=== PATIENT | female | born 1940 | race Caucasian/White ===

== ENCOUNTER 2022-05-11 16:12 | Inpatient (IN) | payer MEDICARE, OTHER ==
[~2022-05-11] VITALS: Ht 160 cm; Wt 66.7 kg
--- NOTE | 2022-05-11 16:15 | NUR ---
RECEIVED PT 82 YRS FEMALE CAME FROM HOME BY HANSA S/P TRIP AND FALL PAIN ON LT HIP DIFFORMITY UNABLE TO KEEPT STRATE
[2022-05-11] MEDS ORDERED: CARV12.5 PO (16:44)
[2022-05-11] MEDS ORDERED: ACETAMINOPHEN ES 500 MG TABLET ONE (16:52)
[2022-05-11] MEDS ORDERED: ACETAMINOPHEN ES 500 MG TABLET PO ONE (17:00)
--- NOTE | 2022-05-11 17:25 | NUR ---
INSERTED ANGO CATHETER G 18 ON RT AC BLOOD DROW AND SENT TO LAB
--- NOTE | 2022-05-11 18:10 | NUR ---
INSERTED FC FR 16 WITH NO DIFFECULTY UA SENT TO LAB
--- NOTE | 2022-05-11 18:14 | NUR ---
DR. ARMSTRONG SPEAKING WITH DR. COOLEY.
--- NOTE | 2022-05-11 18:35 | NUR ---
COVID SWAB SENT TO LAB
[2022-05-11 18:49] LABS: CALCIUM, SERUM 9.1 mg/dL (8.5-10.1); CREATININE 0.7 mg/dL (0.6-1.3); POTASSIUM 3.6 mmol/L (3.5-5.1)
[2022-05-11 18:55] LABS: ALBUMIN 3.3 g/dL (3.4-5.0); BILIRUBIN,DIRECT 0.1 mg/dL (0.0-0.2); BILIRUBIN,TOTAL 0.3 mg/dL (0.2-1.0); TOTAL PROTEIN, SERUM 6.8 g/dL (6.4-8.2)
--- NOTE | 2022-05-11 19:25 | NUR ---
HAND OFF SIMBA RAY
[2022-05-11 19:53] LABS: BASOPHILS % (AUTO) 0.2 % (0.0-2.0); EOSINOPHILS % (AUTO) 0.6 % (0.0-6.0); HEMATOCRIT 39 % (33-45); HEMOGLOBIN 13.1 g/dL (11.5-14.8); LYMPHOCYTES # (AUTO) 1.5 K/uL (0.8-4.8); LYMPHOCYTES % (AUTO) 11.9 % (20.0-44.0); MEAN CORPUSCULAR HGB CONC 33 g/dl (31.0-36.0); MEAN CORPUSCULAR VOLUME 94 fL (82-100); MONOCYTES # (AUTO) 0.5 K/uL (0.1-1.30); MONOCYTES % (AUTO) 3.7 % (2.0-12.0); NEUTROPHILS # (AUTO) 10.4 K/uL (1.8-8.9); NEUTROPHILS % (AUTO) 83.6 % (43.0-81.0); PLATELET COUNT (AUTO) 308 K/uL (150-450); WHITE BLOOD COUNT (AUTO) 12.5 K/uL (4.3-11.0)
[2022-05-11] MEDS ORDERED: KETOROLAC TROMETHAMINE INJ 30 MG/ML VIAL ONE (20:16)
[2022-05-11] MEDS ORDERED: KETOROLAC TROMETHAMINE INJ 30 MG/ML VIAL IV ONE (20:30)
[2022-05-11] MEDS ORDERED: ENOXAPARIN SODIUM 40 MG/0.4 ML DISP.SYRIN SQ SCH (21:00)
[2022-05-11] MEDS ORDERED: ACETAMINOPHEN 325 MG TABLET PO PRN (21:00)
[2022-05-11] MEDS ORDERED: ONDANSETRON HCL/PF 4 MG/2 ML VIAL IVP PRN (21:00)
[2022-05-11] MEDS ORDERED: HYDROCODONE/APAP 5/325MG TABLET PO PRN (21:00)
--- NOTE | 2022-05-11 22:03 | NUR ---
report given to Deonte RAY
--- NOTE | 2022-05-11 22:13 | NUR ---
PATIENT TRANSFERRED TO [facility] VIA BLS PROTOCOL, VS WNL.
--- NOTE | 2022-05-11 22:30 | NUR ---
ADMISSION NOTES PATIENT BROUGHT IN UNIT AT AROUND 2215, ACCOMPANIED BY 2 ER PERSONNEL VIA [employer]. PATIENT IS A/OX4. NO S/S OF APPARENT DISTRESS ON ROOM AIR. PAIN OF 5/10 ON HER LEFT HIP. PATIENT HAS RT. AC #18G IV ACCESS, INTACT AND PATENT. NEW ID BAND ON PATIENT. BELONGINGS CHECKED AND SIGNED FOR. PATIENT HAS HER YELLOW WEDDING BAND ON HER. PATIENT WISHES TO BE FULL CODE BUT DENIES HAVING ANY ADVANCED DIRECTIVES. REFUSED TO ACQUIRE FOR NOW, PER PATIENT SHE IS ORIGINALLY FROM [place] AND WOULD JUST BE HERE FOR 2 MORE MONTHS. PATIENT ORIENTED IN THE UNIT AND THE USE OF CALL LIGHT. ETIENNE CATHETER DRAINING VIA GRAVITY WITH CLEAR, YELLOW URINE. PATIENT DENIES SMOKING NOR DRINKING ALCOHOL. PATIENT WISHED NOT TO CALL DAUGHTER AT THIS TIME, AND TO QUOTE "I WANT HER TO GET SLEEP. SHE KNOWS I AM HERE AND WILL COME TOMORROW. SHE DOESN'T REALLY HANDLE STRESS WELL". PER PATIENT WISHES, I WILL CALL DAUGHTER IN THE MORNING. ALL NEEDS ATTENDED FOR NOW. V/S TAKEN AND RECORDED. SAFETY IN PLACE. PATIENT MADE AWARE OF NPO STATUS FOR PROCEDURE TOMORROW. WILL CONTINUE WITH PLAN OF CARE FOR PATIENT.
--- NOTE | 2022-05-11 22:57 | NUR ---
noc rn note patient c/o 5/10 pain on her hips after positioning. Given [place]-5 as ordered PRN. will reassess.
--- NOTE | 2022-05-11 23:00 | NUR ---
noc rn note Patient does not want to sign consent forms at this time and wants to talk to Orthopedic surgeon first before giving consent. per patient no one has talked to her down in ER just yet about the procedure. Charge nurse aware. Forms on standby and ready for signature.
--- NOTE | 2022-05-11 23:30 | NUR ---
noc rn note BP 142/69 after norco. Initially in the 160's upon admission. will cont. to monitor.
--- NOTE | 2022-05-11 23:41 | NUR ---
linda rn note called [facility] [phone] to verify patient's Carvedilol dose because per patient she doesn't know the dose of her medication and doesn't want to call her daughter at this time for it but pharmacy is closed and only automated system answered. per patient she has not taken her Carvedilol dose for tonight and wanted to take it tonight but I told patient that we need to verify the dosage she is taking. per patient it is fine and we can just call her daughter in the Morning to verify the dose. patient blood pressure 142/69 after [employer]-5. will monitor.
[2022-05-12] MEDS: IV NS 0.9% 1,000 ML IV PRN (01:25)
[2022-05-12] MEDS: MORPHINE SULFATE INJ 2 MG/ML DISP.SYRIN IV PRN ×2 (04:31→12:03)
--- NOTE | 2022-05-12 04:31 | NUR ---
noc rn note patient c/o severe pain. given Morphine 2mg as ordered PRN. will reassess.
[2022-05-12 06:11] LABS: BASOPHILS % (AUTO) 0.2 % (0.0-2.0); EOSINOPHILS % (AUTO) 2.3 % (0.0-6.0); HEMATOCRIT 37 % (33-45); HEMOGLOBIN 12.2 g/dL (11.5-14.8); LYMPHOCYTES # (AUTO) 1.6 K/uL (0.8-4.8); LYMPHOCYTES % (AUTO) 14.1 % (20.0-44.0); MEAN CORPUSCULAR HGB CONC 33 g/dl (31.0-36.0); MEAN CORPUSCULAR VOLUME 95 fL (82-100); MONOCYTES # (AUTO) 0.7 K/uL (0.1-1.30); MONOCYTES % (AUTO) 6.2 % (2.0-12.0); NEUTROPHILS # (AUTO) 8.8 K/uL (1.8-8.9); NEUTROPHILS % (AUTO) 77.2 % (43.0-81.0); PLATELET COUNT (AUTO) 266 K/uL (150-450); RED BLOOD CELL COUNT(AUTO) 3.89 MIL/uL (4.0-5.2); WHITE BLOOD COUNT (AUTO) 11.3 K/uL (4.3-11.0)
--- NOTE | 2022-05-12 06:30 | NUR ---
noc rn note verified the dose of Carvedilol with patient's daughter and verified that the dose patient takes is 3.125, take one tab in the morning and 2 tabs at night. already called Pharmacy. Pharmacist to change.
[2022-05-12 06:37] LABS: CREATININE 0.7 mg/dL (0.6-1.3); MAGNESIUM 2.3 mg/dL (1.8-2.4); PHOSPHORUS 3.7 mg/dL (2.5-4.9)
--- NOTE | 2022-05-12 07:23 | NUR ---
noc rn closing needs attended. endorsed to FLOR Fischer for continuity of patient care.
--- NOTE | 2022-05-12 07:40 | NUR ---
MS RN OPENING NOTE Received patient awake and alert and oriented x 4. No SOB observed. LS clear to auscultation. All four extremities warm to touch with positive pulses. Denies pain at the moment. Safety measures in place: bed brakes locked on; bed in lowest position; bed side rails are up x 3; bed alarm is on; and call aguirre/light is within patient's reach. Patient has patent, intact PIV acces to right arm antecubital space with IV fluid of NS infusing well at 75 mLs/hr. Finnegan catheter patent draining clear yellow urine in CD bag to gravity, below hips, without kinks nor dependent loops. Will continue to care for and monitor per MD POC.
[2022-05-12 08:05] VITALS: BP 155/79
[2022-05-12] MEDS: CARVEDILOL 3.125 MG TABLET PO SCH ×2 (08:20→18:52)
--- NOTE | 2022-05-12 13:25 | NUR ---
DEPARTURE TO SURGERY Patient left the [facility] Med/Surg Unit, Room 325 - Bed 1 at 13:20 hrs bound for the operating room for Left hip ORIF with intermedullary nail surgery. Surgeon had given informed consent information and answered all of the patient's and family's questions. Patient signed informed consent forms. Vital signs stable, POC accucheck BG = 114mg/dL. All jewelry and clothing removed from patient and NPO status had been maintained since midnight.
[2022-05-12] MEDS ORDERED: KETAMINE HCL (500MG/10ML) 50 MG/ML VIAL ONE (13:39)
[2022-05-12] MEDS ORDERED: FENTANYL PF 100MCG/2ML AMPUL ONE (13:39)
[2022-05-12] MEDS ORDERED: BUPIVACAINE 0.5 % PF 150 MG/30 ML VIAL ONE (13:46)
[2022-05-12] MEDS ORDERED: DESFLURANE 240 ML BOTTLE IH ONE (14:29)
[2022-05-12] MEDS ORDERED: BUPIVACAINE 0.25% 75 MG/30 ML VIAL ONE ×2 (14:30→14:56)
[2022-05-12] MEDS ORDERED: CLINDAMYCIN 900 MG/6 ML VIAL ONE (14:32)
[2022-05-12 16:00] VITALS: BP 122/70
[2022-05-12] MEDS ORDERED: ALBUTEROL FS 2.5 MG/0.5 ML VIAL.NEB ONE (16:17)
[2022-05-12] MEDS: ALBUTEROL FS 2.5 MG/0.5 ML VIAL.NEB NEB SCH ×3 (16:23→23:32)
--- NOTE | 2022-05-12 16:35 | NUR ---
RETURNED TO 3 [facility]ST FROM SURGERY Patient returned to room 325 in her bed status post surgery, ORIF of left hip with IM nail at 16:30 hours. Vital signs stable. Afebrile. Patient presented as lethargic, but arousable and oriented x 4. Patient has two clean, dry, intact surgical dressings to lateral side of left thigh. Patient able to plantar and dorsiflex both her feet and has positive pedal pulses with [id number] feet and good capillary refill in her toes. Patient denies having pain at this time. Informed by PACU nurse that patient received nerve block anesthesia medication to left leg and probably would not start to feel pain until 6 hours from now. Safety precautions maintained: bed brakes locked on; bed in lowest position; 3 bed side rails in up position; bed alarm on; and call aguirre/light within patient 's reach. IV fluid of NS infusing well @ 75mLs/hr through a patent PIV ,# 18 gauge in right arm antecubital space without any signs of complications. Finnegan catheter intact, patent, draining to gravity CD bag. Will endorse to machinist 2nd shift FLOR Cuadra for ANN.
[2022-05-12] MEDS ORDERED: ONDANSETRON HCL/PF 4 MG/2 ML VIAL IV PRN (19:00)
[2022-05-12] MEDS ORDERED: ACETAMINOPHEN 325 MG TABLET PO PRN (19:00)
[2022-05-12] MEDS ORDERED: DOCUSATE SODIUM 100 MG CAPSULE PO PRN (19:00)
[2022-05-12] MEDS ORDERED: BISACODYL SUPP (10 MG) 10 MG/SUPP.RECT SUPP.RECT RC PRN (19:00)
--- NOTE | 2022-05-12 19:00 | NUR ---
RN OPENING NOTES PT IS AWAKE. A/O X 4 ABLE TO MAKE NEEDS KNOWN. PT IS WITH SHAINA FELIX. PT ON NASAL CANULA 3LPM O2, TOLERATING WELL, BREATHING EVEN AND UNLABORED AT THIS TIME. PT IS W/ IV ACCESS RIGHT AC #18 RUNNING IV 0.9% Ns 1000 ML @75 MLS/HR, PATENT, INTACT AND FLUSHES WELL W/ NO S/S OF INFILTRATION. PT ETIENNE CATHETER IS IN PLACE DRAINING YELLOW URINE. PT POST LEFT HIP SURGERY INCISION CLEAN AND DRESSED WITH NO PAIN AT THIS TIME. SAFETY MEASURES IS IN PLACE. BED IN ITS LOWEST AND LOCKED POSITION. SIDE RAILS UP X 2 . BEDSIDE TABLE AND CALL LIGHT IS EASY REACH. WILL CONTINUE TO MONITOR PATIENT ACCORDINGLY.
[2022-05-12 20:00] VITALS: BP_SYST 129; BP_SYST 143; BP_DIAS 70; BP_DIAS 90
--- NOTE | 2022-05-12 22:24 | NUR ---
THE FOLLOWING BELONGINGS OF PATIENT: SHIRT AND THERMAL SHIRT AND 1 YELLOW WEDDING BAND RING WAS REMOVED AND BROUGHT HOME BY ELVIRA LAN. CHARGE NURSE, ALECIA WAS INFORMED AND NOTIFIED. PATIENT BELONGING LIST IS UPDATED. Addendum: 05/12/22 at 2228 by MARYANN NIELSEN RN DATE & TIME @ 2106, 05/12/22.
[2022-05-13] MEDS: MORPHINE SULFATE INJ 4 MG/ML DISP.SYRIN IV PRN (03:19)
[2022-05-13] MEDS: ALBUTEROL FS 2.5 MG/0.5 ML VIAL.NEB NEB SCH ×6 (03:20→23:06)
[2022-05-13 06:14] LABS: BASOPHILS % (AUTO) 0.1 % (0.0-2.0); EOSINOPHILS % (AUTO) 0.2 % (0.0-6.0); HEMATOCRIT 31 % (33-45); HEMOGLOBIN 10.5 g/dL (11.5-14.8); LYMPHOCYTES # (AUTO) 1.6 K/uL (0.8-4.8); LYMPHOCYTES % (AUTO) 12.3 % (20.0-44.0); MEAN CORPUSCULAR HGB CONC 34 g/dl (31.0-36.0); MEAN CORPUSCULAR VOLUME 95 fL (82-100); MONOCYTES % (AUTO) 7.6 % (2.0-12.0); NEUTROPHILS # (AUTO) 10.1 K/uL (1.8-8.9); NEUTROPHILS % (AUTO) 79.8 % (43.0-81.0); PLATELET COUNT (AUTO) 216 K/uL (150-450); RED BLOOD CELL COUNT(AUTO) 3.29 MIL/uL (4.0-5.2); WHITE BLOOD COUNT (AUTO) 12.6 K/uL (4.3-11.0)
[2022-05-13 06:36] LABS: CALCIUM, SERUM 8.7 mg/dL (8.5-10.1); CREATININE 0.7 mg/dL (0.6-1.3); POTASSIUM 4.3 mmol/L (3.5-5.1)
--- NOTE | 2022-05-13 06:56 | NUR ---
RN CLOSING NOTES PT IS ASLEEP. A/O X 4, RESPONSIVE. PT ON NASAL CANULA 3LPM O2, TOLERATING WELL, BREATHING EVEN AND UNLABORED AT THIS TIME. PT IS W/ IV ACCESS RIGHT AC #18, PATENT, INTACT AND FLUSHES WELL W/ NO S/S OF INFILTRATION. PT ETIENNE CATHETER IS IN PLACE DRAINING YELLOW URINE. SAFETY MEASURES IS IN PLACE. BED IN ITS LOWEST AND LOCKED POSITION. SIDE RAILS UP X 2 . BEDSIDE TABLE AND CALL LIGHT IS EASY REACH. WILL ENDORSE TO THE NEXT SHIFT FOR CONTINUITY OF CARE.
--- NOTE | 2022-05-13 07:48 | NUR ---
MS RN OPENING NOTE PT IS AWAKE. A/O X 4, RESPONSIVE. PT ON NASAL CANNULA @ 3 LPM O2, TOLERATING WELL, BREATHING EVEN AND UNLABORED AT THIS TIME. PT IS W/ IV ACCESS RIGHT AC #18, PATENT, INTACT AND FLUSHES WELL W/ NO S/S OF INFILTRATION. PT'S ETIENNE CATHETER IS IN PLACE BELOW HER HIPS, WITHOUT DEPENDENT LOOPS, KINKS, NOT TOUCHING THE FLOOR, AND DRAINING YELLOW URINE TO GRAVITY cd BAG WITHOUT LEAKS. SAFETY MEASURES IS IN PLACE. BILATERAL FEET HAVE POSITIVE PEDAL PULSES AND ARE [id number] WITH GOOD CAPILLARY REFILL. SURGICAL DRESSING TO LEFT HIP IS DRY, CLEAN AND INTACT. BED IN ITS LOWEST AND LOCKED POSITION. SIDE RAILS UP X 2 . BEDSIDE TABLE AND CALL LIGHT IS WITHIN EASY REACH. WILL CONTINUE TO CARE FOR AND MONITOR PATIENT PER HOSPITALIST PROVIDER'S POC.
[2022-05-13 08:00] VITALS: BP 135/54
[2022-05-13] MEDS: CARVEDILOL 3.125 MG TABLET PO SCH ×2 (08:20→17:59)
[2022-05-13] MEDS: ENOXAPARIN SODIUM 40 MG/0.4 ML DISP.SYRIN SQ SCH (08:24)
[2022-05-13 16:00] VITALS: BP 149/68
[2022-05-13] MEDS: HYDROCODONE/APAP 5/325MG TABLET PO PRN (17:58)
--- NOTE | 2022-05-13 18:58 | NUR ---
RN CLOSING NOTES PT IS AWAKE. A/O X 4, RESPONSIVE. PT ON NASAL CANULA 3LPM O2, TOLERATING WELL, BREATHING EVEN AND UNLABORED AT THIS TIME. PT IS W/ IV ACCESS RIGHT AC #18, PATENT, INTACT AND FLUSHES WELL W/ NO S/S OF INFILTRATION. PT ETIENNE CATHETER IS IN PLACE DRAINING YELLOW URINE. LEFT HIP DRESSING CLEAN, DRY, INTACT. PT ABLE TO PLANTAR/DORSIFLEX BOTH FEET. BOTH FEET HAVE POSITIVE PEDAL PULSES AND ARE [id number] WITH GOOD CAPILLARY REFILL. SAFETY MEASURES IS IN PLACE. BED IN ITS LOWEST AND LOCKED POSITION. SIDE RAILS UP X 2 . BEDSIDE TABLE AND CALL LIGHT IS EASY REACH. WILL ENDORSE TO THE MAGNETIC OBSERVER RN, CHARANJIT, FOR CONTINUITY OF CARE.
--- NOTE | 2022-05-13 19:59 | NUR ---
RN OPENING NOTE PATIENT AWAKE IN BED. DAUGHTER AT BEDSIDE. A/OX4. NO S/S OF DISTRESS, BREATHING WITHOUT DIFFICULTY ON ROOM AIR. RAC #18 INTACT AND PATENT W/ NS 75ML/HR. SAFETY MEASURES IN PLACE: BED LOCKED AND IN LOWEST POSITION, SEMI-MCCALL'S, RAILS UP X2, CALL MAYORGA WITHIN REACH. WILL CONTINUE TO MONITOR PATIENT.
[2022-05-13 20:00] VITALS: BP 121/61
[2022-05-14] MEDS: ALBUTEROL FS 2.5 MG/0.5 ML VIAL.NEB NEB SCH ×6 (03:30→20:24)
[2022-05-14 06:09] LABS: BASOPHILS % (AUTO) 0.3 % (0.0-2.0); HEMATOCRIT 29 % (33-45); HEMOGLOBIN 9.9 g/dL (11.5-14.8); LYMPHOCYTES # (AUTO) 1.6 K/uL (0.8-4.8); LYMPHOCYTES % (AUTO) 13.4 % (20.0-44.0); MEAN CORPUSCULAR HGB CONC 34 g/dl (31.0-36.0); MEAN CORPUSCULAR VOLUME 94 fL (82-100); MONOCYTES # (AUTO) 0.9 K/uL (0.1-1.30); MONOCYTES % (AUTO) 7.1 % (2.0-12.0); NEUTROPHILS # (AUTO) 9.4 K/uL (1.8-8.9); NEUTROPHILS % (AUTO) 77.2 % (43.0-81.0); PLATELET COUNT (AUTO) 208 K/uL (150-450); RED BLOOD CELL COUNT(AUTO) 3.12 MIL/uL (4.0-5.2); WHITE BLOOD COUNT (AUTO) 12.1 K/uL (4.3-11.0)
[2022-05-14] MEDS: HYDROCODONE/APAP 5/325MG TABLET PO PRN (06:15)
[2022-05-14 06:24] LABS: CALCIUM, SERUM 8.6 mg/dL (8.5-10.1); CREATININE 0.6 mg/dL (0.6-1.3); POTASSIUM 3.7 mmol/L (3.5-5.1)
--- NOTE | 2022-05-14 07:04 | NUR ---
RN CLOSING NOTE PATIENT AWAKE IN BED. A/OX4. NO S/S OF DISTRESS, BREATHING WITHOUT DIFFICULTY ON ROOM AIR. RAC #18 INTACT AND PATENT W/ NS 75ML/HR. SAFETY MEASURES IN PLACE: BED LOCKED AND AT LOWEST POSITION, LOW-FOWLERS, RAILS UP X2, CALL MAYORGA WITHIN REACH. WILL ENDORSE TO NEXT SHIFT FOR ANN.
--- NOTE | 2022-05-14 07:45 | NUR ---
RN OPENING NOTE PATIENT AWAKE IN BED. A/OX4. NO S/S OF DISTRESS, NO C/O OF PAIN AND DISCOMFORT BREATHING WITHOUT DIFFICULTY ON ROOM AIR. RAC #18 INTACT AND PATENT W/ NS 75ML/HR. SAFETY MEASURES IN PLACE: BED LOCKED AND IN LOWEST POSITION, SEMI-MCCALL'S, RAILS UP X2, CALL MAYORGA WITHIN REACH. WILL CONTINUE TO MONITOR PATIENT.
[2022-05-14 08:00] VITALS: BP 138/67
[2022-05-14] MEDS: ENOXAPARIN SODIUM 40 MG/0.4 ML DISP.SYRIN SQ SCH (09:17)
[2022-05-14] MEDS: CARVEDILOL 3.125 MG TABLET PO SCH ×2 (09:18→17:16)
[2022-05-14] MEDS: IV NS 0.9% 1,000 ML IV PRN (09:18)
[2022-05-14] MEDS: MORPHINE SULFATE INJ 4 MG/ML DISP.SYRIN IV PRN (09:37)
[2022-05-14] MEDS ORDERED: Hydrocodone/Apap 5/325MG PO (10:49)
[2022-05-14] MEDS ORDERED: ENOX40DI SQ (10:49)
[2022-05-14 16:00] VITALS: BP 150/80
[2022-05-14 17:16] VITALS: BP 136/70
--- NOTE | 2022-05-14 19:56 | NUR ---
VALVE STEAMER NOTES PATIENT IS WITH ORDER FOR DISCHARGE TODAY TO [facility] , DISCHARGE INSTRUCTIONS PROVIDED TO THE PATIENT AND DAUGHTER REGARDING MEDICATIONS , REHAB TREATMENT AND FOLLOW UP WITH SURGEON , LEFT HIP SURGICAL SITE INTACT , PATIENT WAS WITH PT AND ABLE TO AMBULATE WITH W[facility]ER WITH TWO PERSON ASSIST , REPORT GIVEN TO ELIDIA FROM [facility] AND PATIENT WILL CONTINUE WITH REHAB , WITH ETIENNE CATHETER AND PATIENT WAS PLUG PASTER AROUND 1930 WITH AMBULANCE CREW , NO C/O OF PAIN AND DISCOMFORT ROOM AIR AND NO SOB OR DISCOMFORT WHEN PATIENT LEFT , IN A STABLE CONDITION
== END 2022-05-14 20:05 | DRG 481 ==
LOC: ER 16:28 → MED 21:50
PROVIDERS: ADMIT Nurse Practitioner Acute Care; ATTEND Internal Medicine
PROC: 0QS706Z Reposition Left Upper Femur with Intramedullary Internal Fixation Device, Open Approach (ICD-10-PCS; principal; 2022-05-12)
DX: S72.142A Displaced intertrochanteric fracture of left femur, initial encounter for closed fracture (principal); D68.59 Other primary thrombophilia; E44.1 Mild protein-calorie malnutrition; Z20.822 Contact with and (suspected) exposure to COVID-19; W01.0XXA Fall on same level from slipping, tripping and stumbling without subsequent striking against object, initial encounter; Y92.89 Other specified places as the place of occurrence of the external cause; I10 Essential (primary) hypertension; Z88.0 Allergy status to penicillin; Z79.899 Other long term (current) drug therapy; M21.152 Varus deformity, not elsewhere classified, left hip; E88.09 Other disorders of plasma-protein metabolism, not elsewhere classified; Z74.09 Other reduced mobility; I27.20 Pulmonary hypertension, unspecified
CPT/HCPCS: 36415; 71045-TC; 73020; 73502; 80048-TC; 80061-TC; 80076-TC; 82962-TC; 83735-TC; 84100-TC; 85025-TC; 85730-TC; 86850-TC; 87081-TC; 93307-TC; 94799-TC; 97110-TC; 97112-TC; 97116-TC; 97530-TC; A4217; A4223; A6209; A6253; C1713; C9803; G0378; J1100; J1650; J1885; J2270; J2704; J2765; J3010; J3490; J7030; J7050